=== PATIENT | male | born 2000 | race Caucasian/White ===

== ENCOUNTER 2024-11-26 00:23 | Emergency (ER) | payer BC, SELFPAY ==
[2024-11-26 00:25] VITALS: BP 162/86
[2024-11-26 01:07] LABS: Urine Character Clear (Clear)
--- NOTE | 2024-11-26 02:12 | ED.GENMED ---
History of Present Illness
General
Chief Complaint: Male Genito-Urinary Symptoms
Source: patient
Exam Limitations: none
Time Seen by Provider: 11/26/24 00:37
Nursing documentation reviewed up to this point in time: agreed with except (Patient complains of swelling of left testicle. Not the right testicle.)
History of Present Illness
History of Present Illness:
The patient is a 24-year-old male presenting with swelling of the left testicle, which began approximately one week ago. The patient reports that the swelling initially appeared, then subsided, but subsequently returned. The patient recalls possible
minor trauma to the groin area during a trip to [place], but did not experience any acute pain or definitive injury at that time. He denies any history of similar symptoms prior to the past week. The patient reports some discomfort but not intense
pain, stating, 'It definitely doesn't feel good.' He denies fever, severe pain, or significant interference with daily activities, noting he was able to work and go to the gym despite the discomfort. The patient mentions that the affected testicle
appeared significantly larger than the other, prompting concern. He reports moderate pain to the left testicle which has improved after taking a dose of ibuprofen tonight. He denies nausea, no dysuria and urgency nor frequency, no back pain or
abdominal pain. The patient expresses concern about testicular torsion and testicular cancer.
He takes no medicines on a daily basis.
Prior to 1 week ago, no history of similar episodes in the past.
He is sexually active, 1 partner.
Past History
Past History
ED Past Medical History: None
ED Past Surgical History: None
Social History
Tobacco: Non-smoker
Alcohol: Occasional
Drug: None
Personal: Single
Living: with family
Employment: Student
Family History
Family History: Other (Noncontributory)
Phy Exam
Physical Exam
Physical Exam:
GENERAL: 24-year-old male appears his stated age, awake and alert, pleasant, easily communicative and in no acute distress. Girlfriend is accompanying.
EYE: pupils equal and reactive. anicteric
NECK: Supple, nontender, no meningismus, no significant adenopathy.
ENT: oral mucosa is moist. No rhinorrhea.
CARDIAC: Regular rate and rhythm. no murmur.
LUNGS: Clear breath sounds bilaterally, no acute respiratory distress, no wheezes/rales/rhonchi
ABDOMEN: Soft, nondistended, without focal tenderness, no r/g, no cvat. normoactive BS.
: Moderate swelling and firmness with mild to moderate local tenderness to the left testicle. Mild generalized erythema of the left hemiscrotum. The right testicle is normal size and shape, nontender. There is no inguinal adenopathy nor
inguinal tenderness.
NEUROLOGICAL: Alert and oriented x3, no focal neuro deficits. Gait is steady.
SKIN: Warm and dry, normal color, skin intact. No rash.
MUSCULOSKELETAL: No C/C/E. peripheral pulses are full and equal b/l. No palpable tenderness.
PSYCH: Normal and appropriate interaction.
Sepsis
Sepsis Screening
Sepsis Assessment: Sepsis Ruled Out
Sepsis Screen
Sepsis Screen: Sepsis Ruled Out
Date: 11/26/24
Time: 03:19
Course
Orders/Labs/Results
Orders:
Orders
11/26/24 00:43
US Scrotum Urgent
Comment:
Reason For Exam: Acute swelling pain L testicle
11/26/24 00:55
Urinalysis Reflex To Culture Urgent
Date Specimen was Collected: 11/26/24
Time Specimen was Collected: 00:54
11/26/24 02:37
Add On - Microbiology Urgent
Tests Added?: GC/chlamydia by PCR (urine)
11/26/24 03:18
Azithromycin [Zithromax] 1,000 mg PO NOW STA
Ceftriaxone Sodium [Rocephin] 500 mg IM NOW STA
Vital Signs
Initial and Last Documented VS:
Initial Vital Signs
Temp Pulse Resp BP Pulse Ox
98.7 F 84 18 162/86 100
11/26/24 00:25 11/26/24 00:25 11/26/24 00:25 11/26/24 00:25 11/26/24 00:25
Last Documented Vital Signs
Temp Pulse Resp BP Pulse Ox
98.7 F 84 18 162/86 100
11/26/24 00:25 11/26/24 00:25 11/26/24 00:25 11/26/24 00:25 11/26/24 02:20
MDM/Problems Addressed
Differential Diagnosis Includes:
The Differential Diagnosis includes, in no particular order and is not limited to:
1. Testicular torsion
2. Epididymitis
3. Hydrocele
4. Varicocele
5. Testicular trauma
6. Inguinal hernia
7. Testicular cancer
8. Orchitis
9. Hematocele
10. Testicular abscess
MDM/Problems Addressed:
Acute left testicular pain, swelling
Will check scrotal ultrasound to assess for potential torsion, varicocele, malignancy or other abnormality.
Will check urinalysis.
Overall appears comfortable, at this juncture does not require additional pain medication.
*Radiology
Radiology exam reviewed: radiology read reviewed
*Pulse Oximetry
SaO2: 100
Oxygen Mode of Delivery: Room air
Patient hypoxic: no
*Critical Care Note
Total Time (30-74mins, 75-104mins- exclusive of procedures): Not Applicable
Update Note
Update Note:
03:20
Urinalysis is unremarkable.
Scrotal ultrasound showed acute left-sided epididymitis. There is no evidence of orchitis nor testicular mass.
As patient is sexually active, must consider chlamydia/GC and will cover with one-time dose of Rocephin 500 mg IM as well as Zithromax 1 g p.o.
GC/chlamydia DNA have been added to urine in the lab.
Recommend supportive measures, NSAIDs for pain, scrotal support.
Will refer to urology for follow-up as needed.
Return precautions discussed.
ED Attending Note
-
Portions of this chart may have been created with voice recognition software.� Occasional wrong word or��sound alike� substitutions may have occurred due to the inherent limitations of voice recognition software.
Discharge Plan
Departure
Patient Disposition: Home (Routine Discharge)
Date of Disposition: 11/26/24
Time of Disposition: 03:26
Patient with high blood pressure during this ER visit?: No
Condition: Good
Discharge Problem:
Acute epididymitis
Instructions: Epididymitis and Orchitis
Prescriptions:
New
ibuprofen 600 mg tablet
600 mg PO Q6H PRN (Reason: fever or pain) Qty: 30 0RF
Referrals:
NONE,* [Family Provider, Internal Medicine]
Stanton Baker MD [Active, Urology] - Call in 1-3 days for appt
Interventions
Interventions:
*Risk Screen - Suicide Last Done: 11/26/24 00:25
*Neglect/Abuse Screening Last Done: 11/26/24 00:25
*ED- Fall Risk Assessment Last Done: 11/26/24 00:52
*ED COVID-19 Vaccine History Last Done: 11/26/24 00:52
*ED Influenza Vaccine History Last Done: 11/26/24 00:52
ED-Male Genitourinary Assessment Last Done: 11/26/24 00:49
Discharge Date and Time
Print Language: UPPER SORBIAN
[2024-11-26] MEDS: ZITHROMAX 1000 MG PO (03:24)
[2024-11-26] MEDS: ROCEPHIN 500 MG IM (03:24)
[2024-11-26 03:36] VITALS: BP 137/83
== END 2024-11-26 03:40 | disposition home or self-care (01) ==
LOC: EMR 00:23
PROVIDERS: EMERGENCY PHYSICIAN Emergency Medicine
DX: N45.1 Epididymitis (principal)
CPT/HCPCS: 99284; 96372; 76870; 81003; 87491; 87591; 93976